=== PATIENT | male | born 1960 | race Caucasian/White ===

== ENCOUNTER 2018-06-06 06:29 | Day surgery (SDC) | payer BC ==
[2018-06-06] MEDS ORDERED: Sodium Chloride 0.9% 1,000 ML IV SCH (07:00)
[2018-06-06] MEDS ORDERED: fentaNYL 100 MCG/2 ML SDV ONE (07:46)
[2018-06-06] MEDS ORDERED: Propofol 200 MG/20 ML SDV ONE (07:46)
[2018-06-06] MEDS ORDERED: Midazolam 1 MG/ML 2 ML SDV ONE (07:46)
[2018-06-06 09:17] VITALS: BP 134/91
--- NOTE | 2018-06-06 15:28 | OR ---
DATE OF PROCEDURE: 06/06/2018 PROCEDURE: Colonoscopy. FINDINGS: 1. Cecal polyp, approximately 5 mm, completely removed using cold snare. 2. Ascending colon polyp, approximately 5 mm, completely removed using cold snare. 3. Sigmoid colon polyp, approximately 8 mm, completely removed using cold snare. 4. Diverticulosis, mild, limited to sigmoid colon. COMPLICATIONS: None. SURGEON: Ortiz Howard MD INSURANCE SALES PROFESSIONAL: None. ANESTHESIA: MAC. PREOPERATIVE DIAGNOSIS: Family history of colorectal cancer. POSTOPERATIVE DIAGNOSIS: Family history of colorectal cancer. RISKS: Risks, benefits, alternatives, and limitations including, but not limited to infection, bleeding, and perforation were explained to the patient, who wished to proceed. PROCEDURE IN DETAIL: The patient was placed in left lateral decubitus position. Digital rectal exam was performed without abnormality. The scope was introduced and advanced atraumatically to the ileocecal valve. The scope was brought back through the ascending, transverse, descending colon, and retroflexed. The aforementioned polyps were all identified and completely removed. The diverticulosis would be described as mild, limited to sigmoid colon only. No abnormalities on retroflexion. The patient tolerated the procedure well. Ortiz Howard MD /[id number]
== END 2018-06-06 09:40 | disposition home or self-care (01) ==
LOC: JP.SDS 06:29
PROVIDERS: ATTEND Surgery
DX: Z12.11 Encounter for screening for malignant neoplasm of colon (principal); K63.5 Polyp of colon; K57.30 Diverticulosis of large intestine without perforation or abscess without bleeding; I25.10 Atherosclerotic heart disease of native coronary artery without angina pectoris; K21.9 Gastro-esophageal reflux disease without esophagitis; Z80.0 Family history of malignant neoplasm of digestive organs; Z91.040 Latex allergy status; Z88.8 Allergy status to other drugs, medicaments and biological substances; Z91.048 Other nonmedicinal substance allergy status
CPT/HCPCS: 88305; J2250; J2704; J3010; J7030

== ENCOUNTER 2020-01-15 14:50 | Emergency (ER) | payer BC ==
[2020-01-15] MEDS ORDERED: Sodium Chloride 0.9% 10 ML Syringe FLUSH PRN (15:16)
[2020-01-15] MEDS ORDERED: Aspirin 81 MG Tab.Chew PO ONE (15:45)
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
--- NOTE | 2020-01-15 15:54 | CR ---
CHEST: Portable 01/15/2020 at 3:50 PM CLINICAL HISTORY:Chest pain COMPARISON:None FINDINGS: The heart size, pulmonary vascularity and hilar structures are normal. No infiltrate effusion or pneumothorax is seen. There are some left upper rib fractures IMPRESSION: No acute cardiopulmonary process.
[2020-01-15] MEDS ORDERED: Enoxaparin 80 MG/0.8 ML Syringe SUBCUT ONE (17:11)
[2020-01-15] MEDS ORDERED: Nitroglycerin 2% Oint 1 GM UD Packet TOP ONE (17:15)
[2020-01-15 17:34] VITALS: PULSE 68
[2020-01-15 17:37] VITALS: BP 180/95
== END 2020-01-15 18:13 ==
LOC: JP.ED 14:50
DX: I20.0 Unstable angina (principal); I10 Essential (primary) hypertension; Z85.46 Personal history of malignant neoplasm of prostate; Z91.048 Other nonmedicinal substance allergy status; Z91.040 Latex allergy status; Z88.8 Allergy status to other drugs, medicaments and biological substances
CPT/HCPCS: 36415; 71045; 71045-26; 80053; 82150; 83690; 83735; 84484; 85025; 93005; 93010; 96372; 99285; 99285-25; A9270-GY; J1650; U0002